=== PATIENT | female | born 2000 | race Caucasian/White ===

== ENCOUNTER → 2021-10-24 13:49 | Outpatient (CLI) | payer OTHER, SELFPAY ==
[2021-10-24 20:22] LABS: Free T4, Direct Thyroxine 1.05 ng/dL (0.78-2.19)
[2021-10-24 20:35] LABS: Thyroid Stimulating Hormone 1.16 uIU/mL (0.47-4.68)
== END ==
PROVIDERS: PCP Physician Assistant; Visit Provider Internal Medicine Endocrinology, Diabetes & Metabolism
DX: E03.9 Hypothyroidism, unspecified (principal); E06.3 Autoimmune thyroiditis
CPT/HCPCS: 84439; 84443